=== PATIENT | female | born 1980 | race Caucasian/White ===

== ENCOUNTER 2020-03-10 14:00 | Emergency (ER) | payer MEDICAID ==
[~2020-03-10] VITALS: Ht 162.6 cm; Wt 55.0 kg
[2020-03-10 14:06] VITALS: BP 142/82
[2020-03-10] MEDS ORDERED: ACETAMINOPHEN 325MG TABLET PO ONE (17:00)
== END 2020-03-10 17:00 | disposition home or self-care (01) ==
LOC: ER 14:10 → EDBD 14:10 → ER 17:00
DX: S00.93XA Contusion of unspecified part of head, initial encounter (principal); S70.12XA Contusion of left thigh, initial encounter; S70.02XA Contusion of left hip, initial encounter; V49.9XXA Car occupant (driver) (passenger) injured in unspecified traffic accident, initial encounter; Y93.89 Activity, other specified; Y92.89 Other specified places as the place of occurrence of the external cause; Y99.8 Other external cause status
CPT/HCPCS: 73502; 73552; 99284